=== PATIENT | male | born 1970 | race Caucasian/White ===

== ENCOUNTER 2016-05-16 08:11 | Emergency (ER) | payer SELFPAY | END 2016-05-16 08:54 | disposition home or self-care (01) | DX: J06.9 Acute upper respiratory infection, unspecified (principal); F17.200 Nicotine dependence, unspecified, uncomplicated ==

== ENCOUNTER 2018-04-04 12:10 | Emergency (ER) | payer SELFPAY ==
--- NOTE | 2018-04-04 13:31 | XRAY Report ---
Reason: fall Procedure Date: 04/04/2018 Accession Number: [id number] / [id number] Procedure: XR - Shoulder 3 View LT CPT Code: FULL RESULT: EXAM: LEFT SHOULDER RADIOGRAPHY EXAM DATE: 04/04/2018 01:10 PM. CLINICAL HISTORY: Fall onto left shoulder. Left shoulder pain. COMPARISON: None. TECHNIQUE: 3 views. FINDINGS: Bones: Normal. No fracture or bone lesion. Joints: The glenohumeral and acromioclavicular joints are normal. Soft tissues: The visualized hemithorax is unremarkable. No soft tissue swelling. IMPRESSION: Normal shoulder radiography. [facility]
--- NOTE | 2018-04-04 14:06 | ED Physician Documentation ---
PD HPI UPPER EXT INJURY - Stated complaint Stated Complaint: LEFT SHOULDER PX - Chief complaint Chief Complaint: Ext Problem - History obtained from History obtained from: Patient - History of Present Illness Location: Left, Shoulder Type of injury: Twist Where injury occurred: Home Timing - onset: How many days ago (4) Timing - duration: Days (4) Pain level max: 9 Pain level now: 0 Improved by: Rest Worsened by: Moving Associated symptoms: No: Weakness, Numbness, Tingling, Swelling, Discolored Contributing factors: No: Work related Similar symptoms before: Has not had sx before Recently seen: Not recently seen - Additonal information Additional information: 47-year-old male with no past medical or surgical history here with complaint of tightness of his left shoulder muscle after trying to prevent a fall and hanging onto a handrail resulting to pain since Monday or 4 days ago.Denies falling on the stairs. Denies any numbness. Denies any symptoms prior to falling.He stated he has been taking Motrin 800 mg every 8 hours but feels that it the mu scle tightness that is giving him more problems. Review of Systems Ten Systems: 10 systems reviewed and negative Constitutional: denies: Fever, Myalgias Cardiac: denies: Chest pain / pressure Respiratory: denies: Dyspnea Musculoskeletal: reports: Extremity pain. denies: Neck pain, Back pain, Joint pain, Extremity swelling, Joint swelling Neurologic: denies: Generalized weakness, Focal weakness, Numbness PD PAST MEDICAL HISTORY - Past Medical History Cardiovascular: None Respiratory: None Endocrine/Autoimmune: None : Other (nephrotic syndrome since age 4. ) Psych: Anxiety, Other - Past Surgical History Past Surgical History: Yes Ortho: ACL reconstruction, Rotator cuff repair, Shoulder arthroplasty HEENT: Other - Present Medications Home Medications: Ambulatory Orders Medication Instructions Recorded Confirmed Cyclobenzaprine [Flexeril] 10 mg PO TID PRN #20 tablet 04/04/18 Ibuprofen 04/04/18 - Allergies Allergies/Adverse Reactions: Allergies Allergy/AdvReac Type Severity Reaction Status Date / Time diphenhydramine HCl * Allergy Edema Verified 04/04/18 12:34 [From Benadryl] yellow dye Allergy Anaphylaxis Verified 04/04/18 12:35 - Social History Does the pt smoke?: Yes Smoking Status: Current every day smoker Does the pt drink ETOH?: No Does the pt have substance abuse?: No - Immunizations Immunizations are current?: Yes PD ED PE NORMAL - Vitals Vital signs reviewed: Yes - General General: Alert and oriented X 3, No acute distress, Well developed/nourished - HEENT HEENT: Moist mucous membranes - Neck Neck: Supple, no meningeal sign, No bony TTP, No adenopathy, Other (Left trapezius muscle and scapular muscle with mild tenderness to palpation and spasm. No ecchymosis or abrasions noted.) - Cardiac Cardiac: RRR, No murmur - Respiratory Respiratory: No respiratory distress, Clear bilaterally - Abdomen Abdomen: Normal bowel sounds, Soft, Non tender, Non distended - Back Back: No CVA TTP, No spinal TTP - Derm Derm: Normal color, Warm and dry - Extremities Extremities: No deformity, No edema, Other (Left shoulder unable to hyperextend due to discomfort from scapular and trapezius muscles. Sensation intact. Temperature normal. Pulses +2.) - Neuro Neuro: Alert and oriented X 3 - Psych Psych: Normal mood, Normal affect Results - Vitals Vitals: Vital Signs - 24 hr 04/04/18 12:29 Temperature 36.4 C L Heart Rate 74 Respiratory 16 Rate Blood Pressure 136/85 H O2 Saturation 97 Oxygen O2 Source Room air PD MEDICAL DECISION MAKING - ED course Complexity details: considered differential (Contusion, muscles strain, shoulder sprain, fracture), d/w patient (Outpatient treatment discussed including continuing with his Motrin and I will prescribe him Flexeril. Encouraged hot baths and massage to release the tightness of his left shoulder scapular muscles.) Departure - Departure Disposition: 01 Home, Self Care Clinical Impression: Muscle strain Shoulder pain, left Qualifiers: Chronicity: acute Qualified Code(s): M25.512 - Pain in left shoulder Condition: Stable Instructions: ED Strain Muscle Ext, ED Spasm Muscle Prescriptions: Cyclobenzaprine [Flexeril] 10 mg PO TID PRN #20 tablet PRN Reason: Spasms Comments: Continue with your prescribed Motrin. When taking Flexeril maintain safety, no alcohol no driving.Warm baths. Massage. Follow-up with your primary doctor in 2 weeks. If worse return to the emergency room.
[2018-04-04 14:36] VITALS: BP 128/80
== END 2018-04-04 14:12 | disposition home or self-care (01) ==
LOC: ED 12:10
DX: T14.8XXA Other injury of unspecified body region, initial encounter (principal); M25.512 Pain in left shoulder; X50.1XXA Overexertion from prolonged static or awkward postures, initial encounter; Y93.89 Activity, other specified; F17.200 Nicotine dependence, unspecified, uncomplicated
CPT/HCPCS: 99283

== ENCOUNTER 2018-12-18 06:57 | Emergency (ER) | payer SELFPAY ==
[2018-12-18 07:03] VITALS: BP 145/92
[2018-12-18] MEDS ORDERED: ACETAMINOPHEN 325 MG TABLET PO STA (07:25)
[2018-12-18] MEDS ORDERED: IBUPROFEN 600 MG TABLET PO STA (07:25)
--- NOTE | 2018-12-18 07:55 | XRAY Report ---
Reason: Right sided chest pain after fall Procedure Date: 12/18/2018 Accession Number: [id number] / [id number] Procedure: XR - Chest 2 View X-Ray CPT Code: 22194 FULL RESULT: EXAM: CHEST RADIOGRAPHY EXAM DATE: 12/18/2018 07:40 AM. CLINICAL HISTORY: Right sided chest pain after fall. COMPARISON: None. TECHNIQUE: 2 views. FINDINGS: Lungs/Pleura: No focal opacities evident. No pleural effusion. No pneumothorax. Normal volumes. Mediastinum: Heart and mediastinal contours are unremarkable. Other: None. IMPRESSION: Normal 2-view chest radiography. [facility]
--- NOTE | 2018-12-18 07:59 | ED Physician Documentation ---
History of Present Illness - Stated complaint Stated Complaint: BACK SHOULDER PX-GLF - Chief complaint Chief Complaint: Trauma Ch/Bk - Additonal information Additional information: This is a 48 year old male who presents with right back pain after falling 5 days ago. Patient was out playing with his children in the yard, when he twisted and fell landing on his right side. He had some soreness in his back afterwards but it greatly increased over the next 24 hours. He now states that the pain is in his back between his spine and his right shoulder blade, moderate in severity, and it radiates up and towards his deltoid. When he rolls onto his right side the pain increases. His breathing feels normal to him, he denies any anterior chest pain or left sided chest pain. Denies any history of heart problems or lung problems. Review of Systems Constitutional: denies: Fever Cardiac: denies: Chest pain / pressure Respiratory: denies: Hemoptysis GI: denies: Vomiting Musculoskeletal: denies: Neck pain PD PAST MEDICAL HISTORY - Past Medical History Cardiovascular: None Respiratory: None Endocrine/Autoimmune: None : Other Psych: Anxiety, Other - Past Surgical History Past Surgical History: Yes Ortho: ACL reconstruction, Rotator cuff repair, Shoulder arthroplasty HEENT: Other - Present Medications Home Medications: Ambulatory Orders Medication Instructions Recorded Confirmed Cyclobenzaprine [Flexeril] 10 mg PO TID PRN #15 tablet 12/18/18 RX: Ibuprofen 600 mg PO Q6H PRN #30 tablet 12/18/18 - Allergies Allergies/Adverse Reactions: Allergies Allergy/AdvReac Type Severity Reaction Status Date / Time diphenhydramine HCl * Allergy Edema Verified 12/18/18 07:03 [From Benadryl] yellow dye Allergy Anaphylaxis Verified 12/18/18 07:03 - Social History Does the pt smoke?: Yes Smoking Status: Current every day smoker Does the pt drink ETOH?: No Does the pt have substance abuse?: No - Immunizations Immunizations are current?: Yes - POLST Patient has POLST: No PD ED PE NORMAL - Vitals Vital signs reviewed: Yes - General General: Alert and oriented X 3, No acute distress - HEENT HEENT: Atraumatic - Neck Neck: Supple, no meningeal sign - Cardiac Cardiac: RRR, No murmur - Respiratory Respiratory: Clear bilaterally - Abdomen Abdomen: Soft, Non distended - Back Back: Other (Patient has tenderness in the right mid thoracic paraspinous muscles and the trapezius. No significant midline tenderness to palpation over the CT or L-spine. There is no overlying bruising or erythema.) - Derm Derm: Warm and dry - Extremities Extremities: No deformity - Neuro Neuro: Alert and oriented X 3, No motor deficit, No sensory deficit (5/5 Strength with hand squeeze, finger abduction, wrist extension, elbow flexion and extension.) - Psych Psych: Normal mood, Normal affect Results - Vitals Vitals: Vital Signs - 24 hr 12/18/18 07:01 Temperature 36.6 C Heart Rate 59 L Respiratory 18 Rate Blood Pressure 145/92 H O2 Saturation 99 Oxygen O2 Source Room air - EKG (time done) 7:43 Other comments: Other comments (Rate 44, rhythm sinus bradycardia, there is no ST segment elevation or depression, there is some J-point notching suggestive of benign early re-pole pattern. [place] is normal, intervals are within normal limits.) - Rads (name of study) Chest Radiology: Other (No acute cardiopulmonary abnormality) Procedures - General procedure General procedure: Trigger point injection: After discussing the risks and benefits of the procedure, the area of maximal tenderness was prepped with an alcohol pad. After 3 areas of maximal tenderness were identified, 0.5 cc of 1% lidocaine was injected in each using a 27-gauge needle. Care was taken to stay superficial within the muscle, and I withdrew on the syringe to ensure that I was not in a vessel prior to injecting. Afterwards patient had some immediate improvement, he tolerated the procedure well without complication. There was no bleeding from the injection sites. PD MEDICAL DECISION MAKING - ED course Complexity details: considered differential (Muscle strain, sprain, pneumothorax, fracture) ED course: Patient has localized tenderness in the paraspinous muscles of his thoracic spine. Chest x-ray shows no acute cardiopulmonary abnormality. He has no significant midline vertebral tenderness. EKG was obtained and shows no convincing signs of ischemia or dysrhythmia. Given the location of his pain and especially the fact that it occurred after an obvious inciting traumatic event, cardiac cause of his pain is highly unlikely. Patient does have some bradycardia, which appears to be his baseline as he is atheltic, he has normal blood pressure, and has no symptoms of lightheadedness. He has no risk factors for pulmonary embolism, and is PERC negative, no further work-up is required for PE at this time. Trigger point injection was performed, patient had significant immediate improvement in his pain afterwards. I discussed the likely diagnosis of muscle strain, prescribed some Flexeril and ibuprofen, recommend that he follow closely with his primary care provider. He will return to the emergency department if he develops any shortness of breath, anterior chest pain, or any other concerning symptoms. Patient agreed and was discharged home Departure - Departure Disposition: 01 Home, Self Care Clinical Impression: Back strain Condition: Good Instructions: ED Neck Back Pain General Follow-Up: Your,PCP [Other] (For follow up on pain) Prescriptions: Cyclobenzaprine [Flexeril] 10 mg PO TID PRN #15 tablet PRN Reason: Spasms RX: Ibuprofen 600 mg PO Q6H PRN #30 tablet PRN Reason: Pain Comments: You were seen today for pain in your right back\scapular region. Your chest x- ray does not show signs of a fracture or problems with your lungs. I think you likely have a strain or spasm of your back, please try the Flexeril as well as ibuprofen, and resting the back muscles by avoiding twisting, lifting or straining. Please follow up with your PCP. If you develop worsening pain, or pain in your anterior chest, difficulty breathing, or any other concerning symptoms please return to the emergency department. Discharge Date/Time: 12/18/18 08:44
[2018-12-18] MEDS ORDERED: BUFFERED LIDOCAINE 10 ML SYRINGE SUBQ STA (08:15)
== END 2018-12-18 08:44 | disposition home or self-care (01) ==
LOC: ED 06:57
DX: S29.012A Strain of muscle and tendon of back wall of thorax, initial encounter (principal); W18.30XA Fall on same level, unspecified, initial encounter; Y93.89 Activity, other specified; Y92.007 Garden or yard of unspecified non-institutional (private) residence as the place of occurrence of the external cause; R00.1 Bradycardia, unspecified; F17.200 Nicotine dependence, unspecified, uncomplicated
CPT/HCPCS: 20552; 71046; 93005; 99283; 99284; A9270

== ENCOUNTER 2019-02-08 09:20 | Emergency (ER) | payer SELFPAY ==
[2019-02-08 09:27] VITALS: BP 151/90
--- NOTE | 2019-02-08 10:34 | ED Physician Documentation ---
PD HPI CHEST PAIN - Stated complaint Stated Complaint: CHEST BURNING/COUGH - Chief complaint Chief Complaint: Resp - Additional information Additional information: This is a 48-year-old male who presents with 2 weeks of nasal drainage and sinus pain, as well as 3 days of cough, mild sore throat, and general malaise. No measured fever but he has had a subjective fever at home. 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 He was sent in today by his boss to get checked out because he was feeling poorly. He does have some chest discomfort after coughing, denies any vomiting, diaphoresis, radiation of his chest pain to either arm. Review of Systems Constitutional: denies: Fever Nose: reports: Rhinorrhea / runny nose Throat: denies: Oral lesions / sores Respiratory: denies: Dyspnea GI: denies: Abdominal Pain PD PAST MEDICAL HISTORY - Past Medical History Cardiovascular: None Respiratory: None Endocrine/Autoimmune: None : Other Psych: Anxiety, Other - Past Surgical History Past Surgical History: Yes Ortho: ACL reconstruction, Rotator cuff repair, Shoulder arthroplasty HEENT: Other - Present Medications Home Medications: Ambulatory Orders Medication Instructions Recorded Confirmed Cyclobenzaprine [Flexeril] 10 mg PO TID PRN #15 tablet 12/18/18 Ibuprofen 600 mg PO Q6H PRN #30 tablet 12/18/18 Amox/Clav 875/125 [Augmentin] 1 each PO Q12H #18 tablet 02/08/19 - Allergies Allergies/Adverse Reactions: Allergies Allergy/AdvReac Type Severity Reaction Status Date / Time diphenhydramine HCl * Allergy Edema Verified 12/18/18 07:03 [From Benadryl] yellow dye Allergy Anaphylaxis Verified 12/18/18 07:03 - Social History Does the pt smoke?: Yes Smoking Status: Current every day smoker Does the pt drink ETOH?: No Does the pt have substance abuse?: No - Immunizations Immunizations are current?: Yes - POLST Patient has POLST: No PD ED PE NORMAL - Vitals Vital signs reviewed: Yes - General General: Alert and oriented X 3, No acute distress - HEENT HEENT: Other (Frontal sinus tenderness To percussion, purulent rhinorrhea seen) - Neck Neck: Supple, no meningeal sign - Cardiac Cardiac: RRR - Respiratory Respiratory: No respiratory distress, Clear bilaterally - Abdomen Abdomen: Soft, Non tender, Non distended - Derm Derm: Warm and dry - Extremities Extremities: No deformity - Neuro Neuro: Alert and oriented X 3 - Psych Psych: Normal mood, Normal affect Results - Vitals Vitals: Vital Signs - 24 hr 02/08/19 09:25 Temperature 36.8 C Heart Rate 64 Respiratory 18 Rate Blood Pressure 151/90 H O2 Saturation 98 Oxygen O2 Source Room air - EKG (time done) 10:53 Other comments: Other comments (Rate 52, rhythm sinus, no significant ST elevation or depression, no abnormal T wave inversions, intervals within normal limits.) - Rads (name of study) CXR Radiology: Other (Normal 2 view chest) PD MEDICAL DECISION MAKING - ED course Complexity details: considered differential (URI, sinusitis, pneumonia, ACS, viral syndrome) ED course: On exam patient is afebrile and overall well-appearing. He does have some sinus tenderness and some purulent drainage from his nose. Chest x-ray shows no signs of pneumonia or other acute cardiopulmonary abnormality. EKG is unremarkable with no signs of ischemia or dysrhythmia, and patient's mild chest discomfort occurs only after coughing. His story is much more consistent with an infectious etiology than it is with ACS. Many of his symptoms are consistent with a viral URI, but he has had sinus congestion, and rhinorrhea for close to 2 weeks, raising concern for bacterial sinusitis. I discussed our work-up with the patient, and prescribed him a course of antibiotics for his acute sinusitis. Also discussed supportive care and return precautions. Patient agrees with this plan and was discharged home in care of his partner Departure - Departure Disposition: 01 Home, Self Care Clinical Impression: Sinusitis Qualifiers: Sinusitis location: unspecified location Chronicity: acute Recurrence: not specified as recurrent Qualified Code(s): J01.90 - Acute sinusitis, unspecified URI (upper respiratory infection) Qualifiers: URI type: unspecified URI Qualified Code(s): J06.9 - Acute upper respiratory infection, unspecified Condition: Good Instructions: ED Sinusitis Abx Tx Follow-Up: Your,PCP [Other] (Within one week for follow up on sinus and chest symptoms) Prescriptions: Amox/Clav 875/125 [Augmentin] 1 each PO Q12H #18 tablet Comments: You were seen today for congestion, cough, and sinus pain. You appear to have a sinusitis, we do not see signs of pneumonia today. Please take the antibiotic as prescribed. There is also a chance that allergies are causing your sinus pain, if you are not improving with antibiotics please follow-up with your primary care provider for further evaluation. If you have fever, worsening pain or headache, or other concerning symptoms please return to the emergency department. Discharge Date/Time: 02/08/19 12:02
--- NOTE | 2019-02-08 11:12 | XRAY Report ---
Reason: cough Procedure Date: 02/08/2019 Accession Number: [id number] / [id number] Procedure: XR - Chest 2 View X-Ray CPT Code: 32400 FULL RESULT: EXAM: CHEST RADIOGRAPHY EXAM DATE: 02/08/2019 10:45 AM. CLINICAL HISTORY: Cough. Chest burning. COMPARISON: CHEST 2 VIEW 12/18/2018 7:30 AM. TECHNIQUE: 2 views. FINDINGS: Lungs/Pleura: No focal opacities evident. No pleural effusion. No pneumothorax. Normal volumes. Mediastinum: Heart and mediastinal contours are unremarkable. Other: None. IMPRESSION: Normal 2-view chest radiography. [facility]
[2019-02-08] MEDS ORDERED: AMOX/CLAV 875 MG/125 MG TABLET PO STA (11:25)
== END 2019-02-08 12:02 | disposition home or self-care (01) ==
LOC: ED 09:20
DX: J06.9 Acute upper respiratory infection, unspecified (principal); F17.200 Nicotine dependence, unspecified, uncomplicated
CPT/HCPCS: 71046; 93005; 99283; A9270; 80053; 83690; 84484; 85025

== ENCOUNTER 2019-03-04 06:38 | Emergency (ER) | payer SELFPAY ==
[2019-03-04] MEDS ORDERED: IPRATROPIUM/ALBUTEROL 3 ML NEB INH STA (07:34)
[2019-03-04] MEDS ORDERED: predniSONE 20 MG TABLET PO STA (07:34)
--- NOTE | 2019-03-04 07:52 | ED Physician Documentation ---
History of Present Illness - Stated complaint Stated Complaint: COUGH/CONGESTION - Chief complaint Chief Complaint: Resp - History obtained from History obtained from: Patient - History of Present Illness Timing: How many weeks ago (3-4) Pain level max: 5 Pain level now: 4 - Additonal information Additional information: 48-year-old male presents to the emergency department with cough for the past 3 to 4 weeks. Finished a course of Augmentin with no change. He does smoke, but is down to half a pack a day. No fevers. Nothing makes it better or worse. Pain is only with coughing. Review of Systems Constitutional: denies: Fever, Chills GI: denies: Vomiting, Diarrhea Skin: denies: Rash Musculoskeletal: denies: Neck pain, Back pain Neurologic: denies: Headache PD PAST MEDICAL HISTORY - Past Medical History Past Medical History: No Cardiovascular: None Respiratory: None Endocrine/Autoimmune: None : Other Psych: Anxiety, Other - Past Surgical History Past Surgical History: Yes Ortho: ACL reconstruction, Rotator cuff repair, Shoulder arthroplasty HEENT: Other - Present Medications Home Medications: Ambulatory Orders Medication Instructions Recorded Confirmed Cyclobenzaprine [Flexeril] 10 mg PO TID PRN #15 tablet 12/18/18 Ibuprofen 600 mg PO Q6H PRN #30 tablet 12/18/18 Amox/Clav 875/125 [Augmentin] 1 each PO Q12H #18 tablet 02/08/19 Albuterol Sulfate [Proair 90 mcg IH Q4HR PRN #1 [email or web address] 03/04/19 Respiclick] Benzonatate [Tessalon Perle] 100 - 200 mg PO TID PRN #30 capsule 03/04/19 Doxycycline Hyclate 100 mg PO BID #20 capsule 03/04/19 predniSONE [Deltasone] 10 mg PO [id number] #42 tab 03/04/19 - Allergies Allergies/Adverse Reactions: Allergies Allergy/AdvReac Type Severity Reaction Status Date / Time diphenhydramine HCl * Allergy Edema Verified 12/18/18 07:03 [From Benadryl] yellow dye Allergy Anaphylaxis Verified 12/18/18 07:03 - Social History Does the pt smoke?: Yes Smoking Status: Current every day smoker Does the pt drink ETOH?: No Does the pt have substance abuse?: No - Immunizations Immunizations are current?: Yes - POLST Patient has POLST: No PD ED PE NORMAL - Vitals Vital signs reviewed: Yes - General General: Alert and oriented X 3, No acute distress, Well developed/nourished - HEENT HEENT: Ears normal, Moist mucous membranes, Pharynx benign - Neck Neck: Supple, no meningeal sign - Cardiac Cardiac: RRR, Strong equal pulses - Respiratory Respiratory: No respiratory distress, Other (Diffuse wheezing bilaterally) - Abdomen Abdomen: Soft, Non tender, Non distended - Derm Derm: Warm and dry - Extremities Extremities: No edema - Neuro Neuro: Alert and oriented X 3 - Psych Psych: Normal mood, Normal affect Results - Vitals Vitals: Vital Signs - 24 hr 03/04/19 03/04/19 03/04/19 06:44 07:44 08:40 Temperature 36.3 C L Heart Rate 69 54 L 57 L Respiratory 20 18 18 Rate Blood Pressure 136/80 H O2 Saturation 98 03/04/19 09:05 Temperature Heart Rate 66 Respiratory 16 Rate Blood Pressure 124/78 O2 Saturation 97 Oxygen O2 Source Room air - Rads (name of study) Chest x-ray Radiology: Prelim report reviewed, EMP read contemporaneously, See rad report (No acute disease) PD MEDICAL DECISION MAKING - ED course Complexity details: reviewed results, re-evaluated patient, considered differential, d/w patient ED course: Patient is well-appearing, nontoxic. No hypoxia. No respiratory distress. Fe els better after steroids and nebulizer treatment. Will prescribe inhalers for home. Will place on antibiotics as well. Possible chronic bronchitis? Versus atypical pneumonia. Patient counseled regarding signs and symptoms for which I believe and urgent re-evaluation would be necessary. Patient with good understanding of and agreement to plan and is comfortable going home at this time This document was made in part using voice recognition software. While efforts are made to proofread this document, sound alike and grammatical errors may occur. Departure - Departure Disposition: 01 Home, Self Care Clinical Impression: URI (upper respiratory infection) Qualifiers: URI type: unspecified viral URI Qualified Code(s): J06.9 - Acute upper respiratory infection, unspecified Condition: Good Instructions: ED Upper Resp Infec Abx Tx Follow-Up: your,doctor in 1 week [Other] Prescriptions: Albuterol Sulfate [Proair Respiclick] 90 mcg IH Q4HR PRN #1 [email or web address] PRN Reason: Wheezing Benzonatate [Tessalon Perle] 100 - 200 mg PO TID PRN #30 capsule PRN Reason: Cough Doxycycline Hyclate 100 mg PO BID #20 capsule predniSONE [Deltasone] 10 mg PO [id number] #42 tab Comments: Return if you worsen. Take all steroids until gone. Use the inhaler as prescribed. There may be an early pneumonia on your chest x-ray, therefore we will treat you with antibiotics as well. Discharge Date/Time: 03/04/19 09:11
--- NOTE | 2019-03-04 08:23 | XRAY Report ---
Reason: cough Procedure Date: 03/04/2019 Accession Number: [id number] / [id number] Procedure: XR - Chest 2 View X-Ray CPT Code: 71133 Final Report FULL RESULT: EXAM: CHEST RADIOGRAPHY EXAM DATE: 03/04/2019 08:03 AM HISTORY: cough COMPARISON: CHEST 2 VIEW 02/08/2019 10:37 AM TECHNIQUE: Two Views FINDINGS: Lungs/Pleura: The lungs are clear. No consolidation, edema or pleural effusion. Cardiomediastinal silhouette: Unremarkable accounting for technique. Other: None. IMPRESSION: Normal two view chest. [facility]
[2019-03-04] MEDS ORDERED: ALBUTEROL NEB 2.5 MG/3 ML INH STA (08:25)
[2019-03-04 09:06] VITALS: BP 124/78
== END 2019-03-04 09:11 | disposition home or self-care (01) ==
LOC: ED 06:38
DX: J06.9 Acute upper respiratory infection, unspecified (principal); F17.200 Nicotine dependence, unspecified, uncomplicated
CPT/HCPCS: 71046; 94640; 94664; 99284; J7512

== ENCOUNTER 2019-09-15 15:16 | Emergency (ER) | payer OTHER ==
[2019-09-15 15:21] VITALS: BP 144/88
--- NOTE | 2019-09-15 15:40 | ED Physician Documentation ---
History of Present Illness - Stated complaint Stated Complaint: SINUS PRESSURE/EAR PX - Chief complaint Chief Complaint: Heent - History obtained from History obtained from: Patient - History of Present Illness Timing: How many weeks ago (1) Pain level max: 3 Pain level now: 2 - Additonal information Additional information: 48-year-old male presents to the emergency department complaint of nasal congestion for the past week. Nothing makes it better or worse. Took Claritin without relief. No fevers. Mild sore throat. No vomiting. No abdominal pain. No chest pain. Review of Systems Ten Systems: 10 systems reviewed and negative Constitutional: denies: Fever, Chills Cardiac: denies: Chest pain / pressure Respiratory: denies: Cough GI: denies: Nausea, Vomiting, Diarrhea Skin: denies: Rash Musculoskeletal: denies: Neck pain, Back pain Neurologic: denies: Headache PD PAST MEDICAL HISTORY - Past Medical History Cardiovascular: None Respiratory: None Endocrine/Autoimmune: None : Other Psych: Anxiety, Other - Past Surgical History Past Surgical History: Yes Ortho: ACL reconstruction, Rotator cuff repair, Shoulder arthroplasty HEENT: Other - Present Medications Home Medications: Ambulatory Orders Medication Instructions Recorded Confirmed Cetirizine HCl/Pseudoephedrine 1 each PO BID PRN #30 tab.er.12h 09/15/19 [Zyrtec-D Tablet] Fluticasone [Flonase] 1 sprays GIGI BID PRN #1 bottle 09/15/19 - Allergies Allergies/Adverse Reactions: Allergies Allergy/AdvReac Type Severity Reaction Status Date / Time yellow dye Allergy Anaphylaxis Verified 09/15/19 15:21 - Social History Does the pt smoke?: Yes Smoking Status: Current every day smoker Does the pt drink ETOH?: No Does the pt have substance abuse?: No - Immunizations Immunizations are current?: Yes - POLST Patient has POLST: No PD ED PE NORMAL - Vitals Vital signs reviewed: Yes - General General: Alert and oriented X 3, No acute distress, Well developed/nourished - HEENT HEENT: PERRL, Ears normal, Moist mucous membranes, Other (Mild posterior cobblestoning of the oropharynx. No trismus. No tonsillar exudates. Mild sinus tenderness over the bilateral frontal sinuses) - Neck Neck: Supple, no meningeal sign, No adenopathy - Cardiac Cardiac: RRR - Respiratory Respiratory: No respiratory distress, Clear bilaterally - Abdomen Abdomen: Soft, Non tender, Non distended - Derm Derm: Warm and dry, No rash - Neuro Neuro: Alert and oriented X 3 - Psych Psych: Normal mood, Normal affect Results - Vitals Vitals: Vital Signs - 24 hr 09/15/19 15:18 Temperature 36.6 C Heart Rate 62 Respiratory 16 Rate Blood Pressure 144/88 H O2 Saturation 99 Oxygen O2 Source Room air PD MEDICAL DECISION MAKING - ED course Complexity details: considered differential, d/w patient ED course: 48-year-old male with what appears to be likely viral rhinosinusitis. No fevers. No evidence of bacterial infection. We will prescribe intranasal steroids and decongestants. Patient counseled regarding signs and symptoms for which I believe and urgent re-evaluation would be necessary. Patient with good understanding of and agreement to plan and is comfortable going home at this time This document was made in part using voice recognition software. While efforts are made to proofread this document, sound alike and grammatical errors may occur. Departure - Departure Disposition: 01 Home, Self Care Clinical Impression: Sinusitis Qualifiers: Sinusitis location: unspecified location Chronicity: acute Recurrence: non- recurrent Qualified Code(s): J01.90 - Acute sinusitis, unspecified Condition: Good Instructions: ED Sinusitis No Abx Follow-Up: your,doctor in 1 week [Other] Prescriptions: Cetirizine HCl/Pseudoephedrine [Zyrtec-D Tablet] 1 each PO BID PRN #30 tab .er.12h PRN Reason: nasal congestion Fluticasone [Flonase] 1 sprays GIGI BID PRN #1 bottle PRN Reason: Nasal Congestion Comments: Return if you worsen. Follow-up with your doctor as needed. This should improve over the next week. Drink plenty of fluids and rest.
== END 2019-09-15 15:48 | disposition home or self-care (01) ==
LOC: ED 15:16
DX: J01.10 Acute frontal sinusitis, unspecified (principal); F17.200 Nicotine dependence, unspecified, uncomplicated
CPT/HCPCS: 99282

== ENCOUNTER 2019-12-17 11:12 | Outpatient (CLI) | payer OTHER ==
[2019-12-17 15:35] LABS: ALBUMIN 4.1 g/dL (3.2-5.5); ALBUMIN/GLOBULIN RATIO 1.5 (1.0-2.2); BILIRUBIN,TOTAL 0.6 mg/dL (0.2-1.0); CALCIUM 8.8 mg/dL (8.5-10.3); CREATININE 0.9 mg/dL (0.6-1.2); TOTAL PROTEIN 6.9 g/dL (6.7-8.2)
== END 2019-12-17 11:13 | disposition home or self-care (01) ==
LOC: LAB.S 11:12
PROVIDERS: ATTEND Physician Assistant
DX: N04.9 Nephrotic syndrome with unspecified morphologic changes (principal)
CPT/HCPCS: 36415; 80053

== ENCOUNTER 2019-12-20 15:10 | Outpatient (CLI) | payer OTHER ==
[2019-12-20 20:38] LABS: HEMOGLOBIN A1c% 5.4 % (4.27-6.07)
== END 2019-12-20 15:11 | disposition home or self-care (01) ==
LOC: LAB.S 15:10
PROVIDERS: ATTEND Physician Assistant
DX: R73.9 Hyperglycemia, unspecified (principal)
CPT/HCPCS: 36415; 83036

== ENCOUNTER 2020-01-28 08:34 | Emergency (ER) | payer OTHER ==
--- NOTE | 2020-01-28 08:59 | ED Physician Documentation ---
History of Present Illness - Stated complaint Stated Complaint: L HAND PX - Chief complaint Chief Complaint: Ext Problem - History obtained from History obtained from: Patient - Additonal information Additional information: Patient comes emergency department complaining of left hand pain, especially over the third and fourth metacarpals, after a blunt trauma yesterday. Patient states he was using a drill while installing some floor tile, and that the force of the drill through his hand against a wall. He states that he has had pain and swelling in the area since and he cannot flex his fingers as far as he normally would. No other injuries. No numbness or tingling. No other complaints at this time. Patient states that his wrist, forearm, and elbow are all fine on the left side. Review of Systems Ten Systems: 10 systems reviewed and negative Constitutional: reports: Reviewed and negative Eyes: reports: Reviewed and negative Ears: reports: Reviewed and negative Nose: reports: Reviewed and negative Throat: reports: Reviewed and negative Cardiac: reports: Reviewed and negative Respiratory: reports: Reviewed and negative GI: reports: Reviewed and negative : reports: Reviewed and negative Skin: reports: Reviewed and negative Musculoskeletal: reports: Extremity pain, Joint pain, Extremity swelling, Joint swelling Neurologic: reports: Reviewed and negative Psychiatric: reports: Reviewed and negative Endocrine: reports: Reviewed and negative Immunocompromised: reports: Reviewed and negative PD PAST MEDICAL HISTORY - Past Medical History Cardiovascular: None Respiratory: None Endocrine/Autoimmune: None : Other Psych: Anxiety, Other - Past Surgical History Past Surgical History: Yes Ortho: ACL reconstruction, Rotator cuff repair, Shoulder arthroplasty HEENT: Other - Present Medications Home Medications: Ambulatory Orders Medication Instructions Recorded Confirmed Cetirizine HCl/Pseudoephedrine 1 each PO BID PRN #30 tab.er.12h 09/15/19 [Zyrtec-D Tablet] Fluticasone [Flonase] 1 sprays GIGI BID PRN #1 bottle 09/15/19 - Allergies Allergies/Adverse Reactions: Allergies Allergy/AdvReac Type Severity Reaction Status Date / Time yellow dye Allergy Anaphylaxis Verified 01/28/20 08:44 - Social History Does the pt smoke?: Yes Smoking Status: Current every day smoker Does the pt drink ETOH?: No Does the pt have substance abuse?: No - Immunizations Immunizations are current?: Yes - POLST Patient has POLST: No PD ED PE NORMAL - Vitals Vital signs reviewed: Yes - General General: Alert and oriented X 3, No acute distress - HEENT HEENT: Atraumatic, PERRL, EOMI, Moist mucous membranes - Neck Neck: Supple, no meningeal sign - Cardiac Cardiac: Strong equal pulses - Respiratory Respiratory: No respiratory distress - Derm Derm: Normal color, Warm and dry, No rash - Extremities Extremities: No deformity, Other (Patient has mild edema over his third and fourth metacarpal joints and for a few centimeters proximally, as well. There is contusion and corresponding area on the palmar aspect. Patient has a Dupuytren's contracture of his left middle finger, which is chronic.) - Neuro Neuro: Alert and oriented X 3, No motor deficit, No sensory deficit - Psych Psych: Normal mood, Normal affect Results - Vitals Vitals: Vital Signs - 24 hr 01/28/20 01/28/20 08:35 09:48 Temperature 36.6 C Heart Rate 89 77 Respiratory 16 16 Rate Blood Pressure 139/76 H 133/78 H O2 Saturation 99 99 Oxygen O2 Source Room air - Rads (name of study) L hand XR Radiology: Final report received, EMP read indepedently, See rad report (neg) PD MEDICAL DECISION MAKING - ED course Complexity details: reviewed results, re-evaluated patient, considered differential, d/w patient ED course: Patient was worked up with x-ray series of the left hand, which was negative. Departure - Departure Disposition: 01 Home, Self Care Clinical Impression: Hand contusion Qualifiers: Encounter type: initial encounter Laterality: left Qualified Code(s): S60.222A - Contusion of left hand, initial encounter Condition: Stable Instructions: ED Contusion Hand Comments: Your x-rays look good. There is no evidence of any broken bones. You may apply ice packs and use [id number] pain medication such as ibuprofen and Tylenol as needed. You may use the hand as much as feels comfortable while the bruising and swelling are resolving. Discharge Date/Time: 01/28/20 09:48
[2020-01-28 09:49] VITALS: BP 133/78
--- NOTE | 2020-01-28 09:58 | XRAY Report ---
PROCEDURE: Hand 3 View LT INDICATIONS: blunt trauma, pain, swelling TECHNIQUE: 3 views of the hand acquired. COMPARISON: None. FINDINGS: Bones: No acute fractures or dislocations. No suspicious bony lesions. There is fixed flexion of t he third proximal interphalangeal joint on all provided images. Soft tissues: No suspicious soft tissue calcifications. Mild soft tissue edema is seen at the dorsu m of the hand. IMPRESSION: No acute osseous fracture identified. Fixed flexion of the third proximal interphalangeal joint is se en. MRI may be obtained to evaluate for soft tissue injury if indicated. Reviewed by: Christopher Small MD on 01/28/2020 9:56 AM PDT Approved by: Christopher Small MD on 01/28/2020 9:56 AM PDT Station ID: [id number]
== END 2020-01-28 09:48 | disposition home or self-care (01) ==
LOC: ED 08:34
DX: S60.222A Contusion of left hand, initial encounter (principal); W22.09XA Striking against other stationary object, initial encounter; Y93.H3 Activity, building and construction; F17.200 Nicotine dependence, unspecified, uncomplicated
CPT/HCPCS: 99282; 99283